=== PATIENT | female | born 1995 | race African-American/Black ===

== ENCOUNTER 2017-06-06 13:34 | Emergency (ER) | payer OTHER ==
[2017-06-06 15:04] VITALS: BP 105/68
--- NOTE | 2017-06-06 15:42 | UC ---
FLU HPI - HPI Summary HPI Summary: 22 y/o female student with cough fatigue, mild headache with sinus congestion, b /l ear pain, no difficulty with swallowing. seen at [facility] on thurs, no medication given, decreased sleeping due to pain, coughing. + chills/ night sweats. symptoms lasting for 4-5 days. no recent abx, no recent colds, no pmh , meds- OCP. - History of Current Complaint Chief Complaint: UCGeneralIllness Stated Complaint: SINUS CONGESTION, COUGH, AND SWOLLEN GLANDS Time Seen by Provider: 06/06/17 15:28 Hx Obtained From: Patient Hx Last Menstrual Period: [id number] Onset/Duration: Sudden Onset, Lasting Days Severity Currently: Mild Severity Initially: Moderate Pain Intensity: 0 Pain Scale Used: 0-10 Numeric - Allergy/Home Medications Allergies/Adverse Reactions: Allergies Allergy/AdvReac Type Severity Reaction Status Date / Time No Known Allergies Allergy Verified 06/06/17 15:04 Home Medications: Home Medications Norethindrone-E.estradiol-Iron [Junel Fe 1 mg-20 Mcg Tablet] 1 tab PO DAILY 08/18 [History Confirmed 06/06/17] PMH/Surg Hx/FS Hx/Imm Hx Previously Healthy: Yes - Social History Alcohol Use: Occasionally Substance Use Type: None Smoking Status (MU): Never Smoked Tobacco Review of Systems Constitutional: Chills, Fatigue ENT: Sore Throat, Ear Ache, Nasal Discharge, Sinus Congestion, Sinus Pain/ Tenderness Respiratory: Cough Is Patient Immunocompromised?: No All Other Systems Reviewed And Are Negative: Yes Physical Exam Triage Information Reviewed: Yes Appearance: No Pain Distress, Well-Nourished, Ill-Appearing Vital Signs: Initial Vital Signs Temp 97.5 F 06/06/17 15:00 Pulse 74 06/06/17 15:00 Resp 18 06/06/17 15:00 BP 105/68 06/06/17 15:00 Pulse Ox 100 06/06/17 15:00 Vital Signs Reviewed: Yes Eyes: Positive: Conjunctiva Clear ENT: Positive: Pharyngeal erythema - erythema, mild exudates, Nasal congestion, Nasal drainage, Sinus tenderness - frontal, arpan, Uvula midline. Negative: TM bulging, TM dull, TM red, Tonsillar swelling, Tonsillar exudate Neck: Positive: Supple, Nontender, Enlarged Nodes @ - submand Respiratory: Positive: Lungs clear, Normal breath sounds, No respiratory distress, No accessory muscle use Cardiovascular: Positive: RRR, No Murmur, Pulses Normal Abdomen Description: Negative: CVA Tenderness (R), CVA Tenderness (L) Flu Course/Dx - Course Course Of Treatment: Erythema, sinusitis, follow up with PCP within 2-3 day s. - Differential Dx/Diagnosis Differential Diagnosis/HQI/PQRI: Bronchitis, Broncholiolitis, Upper Respiratory Infection, Other Provider Diagnoses: sinusitis, bronchitis Discharge - Discharge Plan Condition: Good Disposition: HOME Prescriptions: Albuterol HFA INHALER* [Ventolin HFA Inhaler*] 1 - 2 puff INH Q4H PRN #1 mdi PRN Reason: Shortness Of Breath Azithromyxin APRIL (NF) [Z-April (Zithromax) 250 mg tabs #6] 2 tab PO .TODAY, THEN 1 DAILY #6 tab Patient Education Materials: Sinusitis (ED), Acute Bronchitis (ED) Referrals: [facility] - Roberto THIBODEAUX [Primary Care Provider] - Additional Instructions: - Increase fluid intake - Albuterol for shortness of breath, help with breathing - antibiotics as directed - Follow up with [facility] in 2-3 days - GO to ER with neck pain, increased shortness of breath, increased fever - Motrin/ tylenol as needed for pain - ANTIBIOTICS make control less effective- Use back up method until end of cycle & antibiotics completed.
== END 2017-06-06 15:52 | disposition home or self-care (01) ==
LOC: UCEAST 13:34
DX: J32.9 Chronic sinusitis, unspecified (principal); J40 Bronchitis, not specified as acute or chronic
CPT/HCPCS: 99202; G0463